=== PATIENT | female | born 1970 | race Caucasian/White ===

== ENCOUNTER 2016-06-10 10:51 | Emergency (ER) | payer MEDICAID ==
[~2016-06-10] VITALS: Ht 172.7 cm; Wt 115.7 kg
[~2016-06-10 10:51] MED LIST: ADALAT CC60 M1 PO; ENALAPRIL5 M1 PO; METFORMIN500 MG PO
[2016-06-10 11:08] VITALS: BP 144/73
--- NOTE | 2016-06-10 11:08 | NUR ---
PATIENT PRESENTS TO ED WITH C/O OF LOW BACK PAIN THAT RADIATES TO HER LEFT LEG . PT STATES SHE STARTED FEELING BACK PAIN ON WEDNESDAY WHEN SHE LIFTED HER MOM'S WHEELCHAIR . DENIES N/V/D; SKIN IS PINK/WARM/DRY; AAOX4 WITH EVEN AND STEADY GAIT; LUNGS CLEAR BL; HR EVEN AND REGULAR; PT DENIES ANY FEVER, CP, SOB, OR COUGH AT THIS TIME; PATIENT STATES PAIN OF 7/10 AT THIS TIME; VSS; PATIENT POSITIONED FOR COMFORT; HOB ELEVATED; BEDRAILS UP X2; BED DOWN. ER MD MADE AWARE OF PT STATUS.
--- NOTE | 2016-06-10 11:14 | NUR ---
PT TO BED 5 AT THIS TIME.
[2016-06-10] MEDS ORDERED: fentaNYL 0.05 MG/ML VIAL IM ONE (11:45)
--- NOTE | 2016-06-10 11:52 | NUR ---
PATIENT LEFT FOR XRAY
[2016-06-10] MEDS ORDERED: KETOROLAC 60 MG/2 ML VIAL IM ONE (14:30)
--- NOTE | 2016-06-10 14:46 | NUR ---
Patient discharged with v/s stable. Written and verbal after care instructions given and explained. Patient alert, oriented and verbalized understanding of instructions. Ambulatory with steady gait. All questions addressed prior to discharge. ID band removed. Patient advised to follow up with PMD. Rx of MOTRIN AND TRAMADOL given. Patient educated on indication of medication including possible reaction and side effects. Opportunity to ask questions provided and answered. 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
[2016-06-10 14:49] VITALS: BP 152/70
== END 2016-06-10 14:46 | disposition home or self-care (01) ==
LOC: MED 10:51
DX: M54.42 Lumbago with sciatica, left side (principal); M54.41 Lumbago with sciatica, right side; I10 Essential (primary) hypertension; Z87.442 Personal history of urinary calculi
CPT/HCPCS: 72100; 72131; 81002; 81025; 96372; 99284; J1885; J3010

== ENCOUNTER 2018-11-12 21:12 | Emergency (ER) | payer MEDICAID ==
[~2018-11-12] VITALS: Ht 172.7 cm; Wt 129.7 kg
[~2018-11-12 21:12] MED LIST changes: -ADALAT CC60 M1 PO; +ENAL5TAB20 PO; -ENALAPRIL5 M1 PO; +GLU500 PO; -METFORMIN500 MG PO; +NIFE60TE8 PO
[2018-11-12 21:17] VITALS: BP 160/78
--- NOTE | 2018-11-12 21:24 | NUR ---
PT TO LOBBY VSS, GAUZE APPLIED W/ WRAP TO LEFT LOWER LEG, NO ACTIVE BLEEDING AT THIS TIME, PT INSTRUCTED TO NOTIFY STAFF IF BLEEDING.
--- NOTE | 2018-11-12 21:54 | NUR ---
PT AMBULATED TO ER BED 08
--- NOTE | 2018-11-12 22:05 | NUR ---
BLEEDING TO LEFT LOWER LEG AFTER SHAVING, BLEEDING CONTROLLED AT THIS TIME.PT STATES SHE CUT A VERICOSE VEIN. GAUZE APPLIED. HTN PT STATES SHE IS UNABLE TO TAKE NSAIDS D/T GASTRIC BYPASS
[2018-11-12 22:42] VITALS: BP 160/78
--- NOTE | 2018-11-12 22:42 | NUR ---
Patient discharged with v/s stable. Written and verbal after care instructions given and explained. Patient verbalized understanding. Ambulatory with steady gait. All questions addressed prior to discharge. Advised to follow up with PMD. PT STATED SHE HAS NO PAIN 0/10 PRIOR TO D/C
== END 2018-11-12 22:42 | disposition home or self-care (01) ==
LOC: MED 21:12
DX: I83.812 Varicose veins of left lower extremity with pain (principal); R58 Hemorrhage, not elsewhere classified; I10 Essential (primary) hypertension; Z79.84 Long term (current) use of oral hypoglycemic drugs; Z87.442 Personal history of urinary calculi; Z79.899 Other long term (current) drug therapy; Z90.49 Acquired absence of other specified parts of digestive tract; Z98.890 Other specified postprocedural states
CPT/HCPCS: 99281

== ENCOUNTER 2019-05-08 20:16 | Emergency (ER) | payer MEDICAID ==
[~2019-05-08] VITALS: Ht 172.7 cm; Wt 136.1 kg
[~2019-05-08 20:16] MED LIST changes: -ENAL5TAB20 PO; +ENAL5TAB34 PO; +NIFE60TE PO; -NIFE60TE8 PO
[2019-05-08 21:15] VITALS: BP 152/93
--- NOTE | 2019-05-08 21:18 | NUR ---
to lobby a/w bed ambulatory
--- NOTE | 2019-05-08 21:58 | NUR ---
PT AMBULATED TO BED 04
--- NOTE | 2019-05-08 22:04 | NUR ---
PATIENT ALERT AND AWAKE, BREATHING EVEN AND UNLABORED
--- NOTE | 2019-05-08 22:08 | NUR ---
48 YEAR OLD FEMALE COMPLAINS OF BILATERAL KNEE PAIN AND CHEST PAIN AFTER FALLING LAST WEDNESDAY. KNEES BILATERALLY WITH VISIBLE SWELLING AND BRUISING PRESENT. ENFLAMMED WARM AND REDDENED AREA NOTED BELOW LEFT KNEE. PATIENT STATES CHEST PAIN IS MODERATE 5/10 AND DOES NOT RADIATE. HAPPENED AFTER FALL. PEDAL PULSE +3 CAP REFILL < 3 SECONDS BILATERALLY. PATIENT DENIES N/V/D. PATIENT ALERT AND ORIENTED, BREATHING EVEN AND UNLABORED, SKIN WARMAND DRY. BED IN LOWEST POSITION, LOCKED, BED RAIL UPX1.
[2019-05-08] MEDS ORDERED: KETOROLAC 30 MG/ML VIAL IM ONE (22:15)
--- NOTE | 2019-05-08 22:43 | NUR ---
PPATIENT STATES SHE IS UNABLE TO RECEIVE NSAIDS DUE TO GASTRIC BYPASS, DR WADE NOTIFIED
[2019-05-08] MEDS ORDERED: ACETAMINOPHEN EXTRA STRENGTH 500 MG TAB PO ONE (22:45)
--- NOTE | 2019-05-08 23:43 | NUR ---
PATIENT ALERT AND AWAKE, BREATHING EVEN AND UNLABORED
[2019-05-09 00:11] VITALS: BP 130/66
--- NOTE | 2019-05-09 00:11 | NUR ---
Patient discharged with v/s stable. Written and verbal after care instructions given and explained. Patient alert, oriented and verbalized understanding of instructions. Ambulatory with steady gait. All questions addressed prior to discharge. ID band removed. Patient advised to follow up with PMD. Rx of KEFLEX, ULTRAM, ANUSOL CREAM given. Patient educated on indication of medication including possible reaction and side effects. Opportunity to ask questions provided and answered.
== END 2019-05-09 00:11 | disposition home or self-care (01) ==
LOC: MED 20:16
DX: S80.02XA Contusion of left knee, initial encounter (principal); L03.116 Cellulitis of left lower limb; I10 Essential (primary) hypertension; Z90.49 Acquired absence of other specified parts of digestive tract; Z79.899 Other long term (current) drug therapy; Z98.0 Intestinal bypass and anastomosis status; W17.89XA Other fall from one level to another, initial encounter; Y93.89 Activity, other specified; Y92.89 Other specified places as the place of occurrence of the external cause; Y99.8 Other external cause status; Z87.442 Personal history of urinary calculi
CPT/HCPCS: 73562; 73590; 93971; 99284; Q0092; J1885

== ENCOUNTER 2019-05-16 18:08 | Emergency (ER) | payer MEDICAID ==
[~2019-05-16] VITALS: Ht 172.7 cm; Wt 136.1 kg
[2019-05-16 18:14] VITALS: BP 122/93
[2019-05-16 21:44] VITALS: BP 122/93
--- NOTE | 2019-05-16 21:44 | NUR ---
Patient discharged with v/s stable. Written and verbal after care instructions given and explained. Patient alert, oriented and verbalized understanding of instructions. Ambulatory with steady gait. All questions addressed prior to discharge. ID band removed. Patient advised to follow up with PMD. Rx of LEVAQUIN WAS given. Patient educated on indication of medication including possible reaction and side effects. Opportunity to ask questions provided and answered. PT ASSESSD AND D/C PT.
== END 2019-05-16 21:44 | disposition home or self-care (01) ==
LOC: MED 18:08
DX: M25.562 Pain in left knee (principal); I10 Essential (primary) hypertension; Z87.442 Personal history of urinary calculi; Z79.899 Other long term (current) drug therapy; Z90.49 Acquired absence of other specified parts of digestive tract; Z98.0 Intestinal bypass and anastomosis status; W18.30XA Fall on same level, unspecified, initial encounter; Y93.89 Activity, other specified; Y92.89 Other specified places as the place of occurrence of the external cause; Y99.8 Other external cause status
CPT/HCPCS: 99283

== ENCOUNTER 2019-09-08 12:48 | Emergency (ER) | payer MEDICAID ==
[~2019-09-08] VITALS: Ht 172.7 cm; Wt 136.1 kg
--- NOTE | 2019-09-08 12:50 | NUR ---
Oh angelo in ED - 09/08/19 at 1256 by MMTHEM Patient ambulated to bed 7. RN evaluating patient at bedside.
[2019-09-08 12:52] VITALS: BP 154/74
--- NOTE | 2019-09-08 13:01 | NUR ---
49/F C/O RT MEDIAL ELBOW PAIN X 3 DAYS. HX OF ROTATOR CUFF INJURIES OF RT SHOULDER. DENIES RECENT INJURY. SEEN IN [facility] AND WAS REFERRED HERE D/T NO U/S AND IMAGING IN-HOUSE TO R/O BLOOD CLOT. PT REPORTS FOCAL POINT OF PAIN AT RT MEDIAL ELBOW. AREA IS TTP. STATES SHE FELT A "BALL" IN THE AREA YESTERDAY BUT NO LONGER DOES TODAY. NO OBVIOUS REDNESS OR EXTRA WARMTH TO RT ELBOW COMPARED TO LEFT SIDE. HX- HTN, GASTRIC BYPASS 2012 MED- NIFEDIPINE
--- NOTE | 2019-09-08 13:01 | NUR ---
Pt amb to bed 07 steady gait
--- NOTE | 2019-09-08 13:04 | NUR ---
Dr. Gómez is evaluating the patient at bedside.
[2019-09-08] MEDS ORDERED: HYDROcodone/APAP 5/325 MG 1 TAB TAB PO ONE (13:05)
--- NOTE | 2019-09-08 13:13 | NUR ---
U/S tech at bedside.
--- NOTE | 2019-09-08 15:00 | NUR ---
PT RIGHT ARM PLACED IN SLING RN NOTIFIED
[2019-09-08 15:10] VITALS: BP 148/72
== END 2019-09-08 15:10 | disposition home or self-care (01) ==
LOC: MED 12:48
DX: M25.421 Effusion, right elbow (principal); I10 Essential (primary) hypertension; Z79.899 Other long term (current) drug therapy; Z88.6 Allergy status to analgesic agent; Z90.49 Acquired absence of other specified parts of digestive tract; Z87.442 Personal history of urinary calculi; Z98.84 Bariatric surgery status
CPT/HCPCS: 73080; 93971; 99284; Q0092

== ENCOUNTER 2020-11-19 22:45 | Emergency (ER) | payer MEDICAID ==
[~2020-11-19] VITALS: Ht 172.7 cm; Wt 136.1 kg
[2020-11-19 22:50] VITALS: BP 144/82
--- NOTE | 2020-11-19 22:53 | NUR ---
TO LOBBY A/W BED AMBULATORY
--- NOTE | 2020-11-19 23:11 | NUR ---
pt ambulated to bed 05
--- NOTE | 2020-11-19 23:30 | NUR ---
RECEIVED IN BED 5 WITH C/O CP. PATIENT STATES PAIN RADIATES TO BACK. POINTS TO EPIGASTRIC AREA WHEN ASKED WHERE PAIN IS. STATES H/O HTN. ATTACHED TO CM = SR WITHOUT ECTOPY. PMH : HTN ALLERGIES : NSAIDS
--- NOTE | 2020-11-19 23:45 | NUR ---
PT REQUESTS SL TO BE D/C'D DUE TO PAIN. IV D/C'D
[2020-11-20] MEDS ORDERED: NITROGLYCERIN 2% 1 GM PKT TP ONE ×2 (01:10)
[2020-11-20] MEDS ORDERED: ASPIRIN 325 MG TAB PO ONE (01:10)
[2020-11-20 01:22] LABS: BASOPHILS % (AUTO) 0.1 % (0.0-2.0); EOSINOPHILS # (AUTO) 0.1 K/uL (0-0.4); EOSINOPHILS % (AUTO) 1.2 % (0.0-4.0); HEMATOCRIT 40.5 % (36-48); HEMOGLOBIN 13.5 g/dL (12.0-16.0); LYMPHOCYTES # (AUTO) 1.1 K/uL (2.5-16.5); LYMPHOCYTES % (AUTO) 20.4 % (20.5-51.1); MEAN CORPUSCULAR HEMOGLOBIN 30 pg (27-31); MEAN CORPUSCULAR HGB CONC 33 g/dL (33-37); MEAN CORPUSCULAR VOLUME 90.3 fL (80-94); MONOCYTES # (AUTO) 0.4 K/uL (0.8-1.0); MONOCYTES % (AUTO) 7.8 % (1.7-9.3); NEUTROPHILS # (AUTO) 3.9 K/uL (1.8-7.7); NEUTROPHILS % (AUTO) 70.5 % (42.2-75.2); PLATELET COUNT (AUTO) 234 K/uL (140-450); RED BLOOD CELL COUNT(AUTO) 4.49 MIL/uL (4.20-5.40); RED CELL DISTRIBUTION WIDTH 14.5 % (11.6-13.7); WHITE BLOOD COUNT (AUTO) 5.5 K/uL (4.8-10.8)
[2020-11-20 01:37] LABS: CHOL/HDL RATIO 1.8 (1-4.5)
[2020-11-20 01:38] LABS: ALBUMIN 3.8 g/dL (3.4-5.0); CARBON DIOXIDE 28.9 mmol/L (21-32); CREATININE 0.9 mg/dL (0.6-1.3); POTASSIUM 3.9 mmol/L (3.5-5.1); TOTAL BILIRUBIN 0.3 mg/dL (0.0-1.0)
[2020-11-20 01:47] LABS: CREATINE KINASE MB 0.9 ng/mL (0-3.6)
--- NOTE | 2020-11-20 03:26 | NUR ---
PT HAS VERY POOR VENOUS ACCESS AND C/O SEVERE PAIN WHEN IV ESTABLISHMENT ATTEMPTED.
--- NOTE | 2020-11-20 04:00 | NUR ---
SL ESTABLISHED LEFT FOOT, UNABLE TO DRAW LABS
--- NOTE | 2020-11-20 04:15 | NUR ---
TAMRA SWAB OBTAINED AND SENT TO LAB
--- NOTE | 2020-11-20 06:15 | NUR ---
REPORT CALLED TO TAI SWANSON AT [facility]
--- NOTE | 2020-11-20 07:13 | NUR ---
Report received from TAI De La Garza, care assumed.
[2020-11-20 08:10] VITALS: BP 152/88
--- NOTE | 2020-11-20 08:10 | NUR ---
Patient to be transferred to [facility]. Is being transferred due to chest pain. Receiving facility has accepting physician and available space. ER physician has signed transfer form. Patient or responsible democrat has agreed to transfer and signed form. Patient belongings inventoried and will be sent with patient. Copy of nursing notes, lab reports, EKG, Physicians Orders and X-rays to be sent with patient. Report called to TAI De La Garza (by overnight cashier TAI De La Garza) at receiving facility. [facility] ambulance service has been called for transfer. Patient was taken at 0810.
== END 2020-11-20 08:10 | disposition short-term general hospital (02) ==
LOC: MED 22:45
DX: I20.9 Angina pectoris, unspecified (principal); I10 Essential (primary) hypertension; Z20.828 Contact with and (suspected) exposure to other viral communicable diseases; Z87.442 Personal history of urinary calculi; E78.5 Hyperlipidemia, unspecified
CPT/HCPCS: 36415; 71045; 80053; 82550; 82553; 83880; 84484; 85025; 85379; 93005; 99285